=== PATIENT | male | born 1950 | race American Indian/Alaskan Native ===

== ENCOUNTER 2017-11-19 23:26 | Emergency (ER) | payer MEDICARE ==
[2017-11-19] MEDS ORDERED: ASPIRIN PO ONE (23:43)
[2017-11-20 00:05] LABS: Hematocrit 27.1 % (35.5-45.6); Hemoglobin 8.5 gm/dl (11.8-15.2); Mean Corpuscular HGB Conc 31 % (32-34); Platelet Count 225 K/mm3 (140-440); Red Blood Count 3.95 M/mm3 (3.65-5.03); Red Cell Distribution Width 19.7 % (13.2-15.2)
[2017-11-20 00:07] LABS: Mean Corpuscular Hemoglobin 22 pg (28-32); Mean Corpuscular Volume 69 fl (84-94)
[2017-11-20 00:20] LABS: BUN/Creatinine Ratio 21; Blood Urea Nitrogen 17 mg/dL (9-20); Calcium 8.6 mg/dL (8.4-10.2); Hemolysis Index 0
[2017-11-20 01:51] LABS: Anisocytosis 1+; Basophils % (Manual) 0 % (0.0-1.8); Hypochromasia 2+; Total Cells Counted 100
[2017-11-20 01:52] LABS: Large Platelets Few; Ovalocytes Few; Platelet Estimate Consistent w Auto
[2017-11-20] MEDS ORDERED: NACL 0.9% 1000 ML 1,000 ML ONE (03:14)
[2017-11-20] MEDS ORDERED: NACL 0.9% 500 ML 500 ML IV ONE (05:38)
[2017-11-20] MEDS ORDERED: NACL 0.9% 1000 ML 1,000 ML IV ONE (05:57)
--- NOTE | 2017-11-20 06:38 | XRay Report ---
FINAL REPORT EXAM: XR CHEST 1V AP HISTORY: chest pain TECHNIQUE: AP portable view(s) of the chest obtained. PRIORS: 11/10/2017, CT chest angiogram 11/10/2017 FINDINGS: No mediastinal shift. Cardiac silhouette is not enlarged. No pneumothorax or definite effusion. Large right lower lung mass and patchy right and left opacities are unchanged. No acute skeletal findings. IMPRESSION: No acute pulmonary finding identified. Known large right lung mass and multiple additional pleural and parenchymal nodules appear unchanged.
--- NOTE | 2017-11-20 07:06 | Emergency Department Report ---
ED Chest Pain HPI - General Chief Complaint: Chest Pain Stated Complaint: CP Time Seen by Provider: 11/20/17 06:05 Source: patient, EMS Mode of arrival: Stretcher Limitations: No Limitations - History of Present Illness Initial Comments: Patient is a 67-year-old male who is complaining of chest pain. Patient states that he was playing with his son last night and started having chest pain shortness of breath. Patient states his last approximately 30 minutes. Patient states whenever he was given last night did help his pain. Patient has a history of lung cancer hypertension. Patient has had SVT in the past. Patient came in with an elevated heart rate. Severity scale (0 -10): 5 Quality: tightness Consistency: constant - Related Data Home Medications Medication Instructions Recorded Confirmed Last Taken Diltiazem HCl [Diltiazem ER] 120 mg PO QDAY 11/10/17 11/10/17 Unknown Mirtazapine [Remeron] 15 mg PO HS 11/10/17 11/10/17 Unknown levETIRAcetam [Keppra] 500 mg PO Q12H 11/10/17 11/10/17 Unknown Allergies Allergy/AdvReac Type Severity Reaction Status Date / Time No Known Allergies Allergy Verified 11/10/17 03:59 Heart Score - HEART Score History: Slightly suspicious EKG: Normal Age: > 65 Risk factors: 1-2 risk factors Troponin: < normal limit HEART Score: 3 ED Review of Systems ROS: Stated complaint: CP Other details as noted in HPI Comment: All other systems reviewed and negative ED Past Medical Hx - Past Medical History Hx Hypertension: Yes Hx of Cancer: Yes (Lung) Hx Sickle Cell Disease: No Hx HIV: No Additional medical history: SVT - Surgical History Past Surgical History?: No Additional Surgical History: right collar bone - Social History Smoking Status: Never Smoker Substance Use Type: None - Medications Home Medications: Home Medications Medication Instructions Recorded Confirmed Last Taken Type Diltiazem HCl [Diltiazem ER] 120 mg PO QDAY 11/10/17 11/10/17 Unknown History Mirtazapine [Remeron] 15 mg PO HS 11/10/17 11/10/17 Unknown History levETIRAcetam [Keppra] 500 mg PO Q12H 11/10/17 11/10/17 Unknown History ED Physical Exam - General Limitations: No Limitations General appearance: alert, in no apparent distress - Head Head exam: Present: atraumatic, normocephalic - Eye Eye exam: Present: normal appearance - ENT ENT exam: Present: mucous membranes moist - Neck Neck exam: Present: normal inspection - Respiratory Respiratory exam: Present: normal lung sounds bilaterally. Absent: respiratory distress, wheezes, rales, rhonchi - Cardiovascular Cardiovascular Exam: Present: normal rhythm, tachycardia. Absent: systolic murmur, diastolic murmur, rubs, gallop - GI/Abdominal GI/Abdominal exam: Present: soft, normal bowel sounds - Rectal Rectal exam: Present: deferred - Extremities Exam Extremities exam: Present: normal inspection - Back Exam Back exam: Present: normal inspection - Neurological Exam Neurological exam: Present: alert, oriented X3 - Psychiatric Psychiatric exam: Present: normal affect, normal mood - Skin Skin exam: Present: warm, dry, intact, normal color. Absent: rash ED Course Vital Signs 11/19/17 11/19/17 11/19/17 23:41 23:45 23:47 Temperature Pulse Rate 95 H 95 H 95 H Respiratory 17 16 16 Rate Blood Pressure 122/68 114/73 114/73 O2 Sat by Pulse 99 98 Oximetry 11/19/17 11/20/17 11/20/17 23:52 00:00 00:15 Temperature 98.7 F Pulse Rate 90 89 Respiratory 16 16 15 Rate Blood Pressure 107/66 103/66 O2 Sat by Pulse 98 Oximetry 11/20/17 11/20/17 11/20/17 00:30 00:45 01:00 Temperature Pulse Rate 85 87 93 H Respiratory 16 16 16 Rate Blood Pressure 108/65 106/68 125/83 O2 Sat by Pulse 100 Oximetry 11/20/17 11/20/17 11/20/17 02:57 03:00 04:01 Temperature Pulse Rate 133 H 129 H Respiratory 14 11 L Rate Blood Pressure 108/65 109/78 105/75 O2 Sat by Pulse 99 96 100 Oximetry 11/20/17 11/20/17 05:01 05:31 Temperature Pulse Rate 103 H 89 Respiratory 22 15 Rate Blood Pressure 106/71 106/71 O2 Sat by Pulse 98 100 Oximetry ED Medical Decision Making - Lab Data Result diagrams: 11/19/17 23:51 11/19/17 23:51 Lab Results 11/19/17 11/19/17 11/20/17 Range/Units 23:51 23:51 03:05 WBC 2.7 L (4.5-11.0) K/mm3 RBC 3.95 (3.65-5.03) M/mm3 Hgb 8.5 L (11.8-15.2) gm/dl Hct 27.1 L (35.5-45.6) % MCV 69 L (84-94) fl MCH 22 L (28-32) pg MCHC 31 L (32-34) % RDW 19.7 H (13.2-15.2) % Plt Count 225 (140-440) K/mm3 [place] % (Auto) Managing Consultant Add Manual Diff Complete Total Counted 100 Seg Neuts % (Manual) 39.0 L (40.0-70.0) % Band Neutrophils % 1.0 % Lymphocytes % (Manual) 43.0 H (13.4-35.0) % Reactive Lymphs % (Man) 0 % Monocytes % (Manual) 14.0 H (0.0-7.3) % Eosinophils % (Manual) 3.0 (0.0-4.3) % Basophils % (Manual) 0 (0.0-1.8) % Metamyelocytes % 0 % Myelocytes % 0 % Promyelocytes % 0 % Blast Cells % 0 % Nucleated RBC % Not Reportable Seg Neutrophils # Man 1.1 L (1.8-7.7) K/mm3 Band Neutrophils # 0.0 K/mm3 Lymphocytes # (Manual) 1.2 (1.2-5.4) K/mm3 Abs React Lymphs (Man) 0.0 K/mm3 Monocytes # (Manual) 0.4 (0.0-0.8) K/mm3 Eosinophils # (Manual) 0.1 (0.0-0.4) K/mm3 Basophils # (Manual) 0.0 (0.0-0.1) K/mm3 Metamyelocytes # 0.0 K/mm3 Myelocytes # 0.0 K/mm3 Promyelocytes # 0.0 K/mm3 Blast Cells # 0.0 K/mm3 WBC Morphology Not Reportable Hypersegmented Neuts Not Reportable Hyposegmented Neuts Not Reportable Hypogranular Neuts Not Reportable Smudge Cells Not Reportable Toxic Granulation Not Reportable Toxic Vacuolation Not Reportable Dohle Bodies Not Reportable Pelger-Huet Anomaly Not Reportable Fred Rods Not Reportable Platelet Estimate Consistent w auto Clumped Platelets Not Reportable Plt Clumps, EDTA Not Reportable Large Platelets Few Giant Platelets Not Reportable Platelet Satelliting Not Reportable Plt Morphology Comment Not Reportable RBC Morphology Not Reportable Dimorphic RBCs Not Reportable Polychromasia Not Reportable Hypochromasia 2+ Poikilocytosis Not Reportable Anisocytosis 1+ Microcytosis 1+ Macrocytosis Not Reportable Spherocytes Not Reportable Pappenheimer Bodies Not Reportable Sickle Cells Not Reportable Target Cells Not Reportable Tear Drop Cells Not Reportable Ovalocytes Few Helmet Cells Not Reportable Adan-[place] Bodies Not Reportable [place] Rings Not Reportable Bud Cells Not Reportable Bite Cells Not Reportable Crenated Cell Not Reportable Elliptocytes Few Acanthocytes (Spur) Not Reportable Rouleaux Not Reportable Hemoglobin C Crystals Not Reportable Schistocytes Not Reportable Malaria parasites Not Reportable Alejandro Bodies Not Reportable Hem Pathologist Commnt No Sodium 142 (137-145) mmol/L Potassium 3.9 (3.6-5.0) mmol/L Chloride 101.9 (98-107) mmol/L Carbon Dioxide 28 (22-30) mmol/L Anion Gap 16 mmol/L BUN 17 (9-20) mg/dL Creatinine 0.8 (0.8-1.5) mg/dL Estimated GFR > 60 ml/min BUN/Creatinine Ratio 21 % Glucose 107 H (75-100) mg/dL Calcium 8.6 (8.4-10.2) mg/dL Troponin T < 0.010 < 0.010 (0.00-0.029) ng/mL 11/20/17 Range/Units 05:54 WBC (4.5-11.0) K/mm3 RBC (3.65-5.03) M/mm3 Hgb (11.8-15.2) gm/dl Hct (35.5-45.6) % MCV (84-94) fl MCH (28-32) pg MCHC (32-34) % RDW (13.2-15.2) % Plt Count (140-440) K/mm3 [place] % (Auto) Add Manual Diff Total Counted Seg Neuts % (Manual) (40.0-70.0) % Band Neutrophils % % Lymphocytes % (Manual) (13.4-35.0) % Reactive Lymphs % (Man) % Monocytes % (Manual) (0.0-7.3) % Eosinophils % (Manual) (0.0-4.3) % Basophils % (Manual) (0.0-1.8) % Metamyelocytes % % Myelocytes % % Promyelocytes % % Blast Cells % % Nucleated RBC % Seg Neutrophils # Man (1.8-7.7) K/mm3 Band Neutrophils # K/mm3 Lymphocytes # (Manual) (1.2-5.4) K/mm3 Abs React Lymphs (Man) K/mm3 Monocytes # (Manual) (0.0-0.8) K/mm3 Eosinophils # (Manual) (0.0-0.4) K/mm3 Basophils # (Manual) (0.0-0.1) K/mm3 Metamyelocytes # K/mm3 Myelocytes # K/mm3 Promyelocytes # K/mm3 Blast Cells # K/mm3 WBC Morphology Hypersegmented Neuts Hyposegmented Neuts Hypogranular Neuts Smudge Cells Toxic Granulation Toxic Vacuolation Dohle Bodies Pelger-Huet Anomaly Fred Rods Platelet Estimate Clumped Platelets Plt Clumps, EDTA Large Platelets Giant Platelets Platelet Satelliting Plt Morphology Comment RBC Morphology Dimorphic RBCs Polychromasia Hypochromasia Poikilocytosis Anisocytosis Microcytosis Macrocytosis Spherocytes Pappenheimer Bodies Sickle Cells Target Cells Tear Drop Cells Ovalocytes Helmet Cells Adan-[place] Bodies [place] Rings Ahsan Cells Bite Cells Crenated Cell Elliptocytes Acanthocytes (Spur) Rouleaux Hemoglobin C Crystals Schistocytes Malaria parasites Alejandro Bodies Hem Pathologist Commnt Sodium (137-145) mmol/L Potassium (3.6-5.0) mmol/L Chloride (98-107) mmol/L Carbon Dioxide (22-30) mmol/L Anion Gap mmol/L BUN (9-20) mg/dL Creatinine (0.8-1.5) mg/dL Estimated GFR ml/min BUN/Creatinine Ratio % Glucose (75-100) mg/dL Calcium (8.4-10.2) mg/dL Troponin T < 0.010 (0.00-0.029) ng/mL - EKG Data -: EKG Interpreted by Me - EKG Data 11/20/17 07:03 EKG on arrival at 2357 shows a sinus rhythm rate of 92 moniliasis normal intervals no ST segment elevations or depressions EKG at 322 shows tachycardia with a rate of 131 there are no P waves regular rate intervals are within normal limits.The elevations as interpreted as SVT. Repeat - Radiology Data Radiology results: report reviewed This x-ray is within normal limits. There is a previous lung mass that is old and seen on previous sounds. Otherwise there is no acute process - Medical Decision Making Patient is a 67-year-old -[place] male who has past medical history SVT who has chest pain shortness of breath prior to arrival. The patient states this lasted about 30 minutes and resolved. The patient arrived his EKG was within normal limits. And while monitoring and gathering of the patient's laboratory studies to rule out [place] patient did have a run of tachycardia. The tachycardia did not have P waves consistent with an SVT. Patient was given adenosine 2 doses and is feeling much improved. Patient does have take diltiazem for rate control at home and will continue this medication. Patient is stable at 0700 and states he would like to go home. Patient cardiology follow-up. Critical Care Time: Yes Critical care time in (mins) excluding proc time.: 30 Critical care attestation.: If time is entered above; I have spent that time in minutes in the direct care of this critically ill patient, excluding procedure time. ED Disposition Clinical Impression: SVT (supraventricular tachycardia), Chest pain Disposition: DC-01 TO HOME OR SELFCARE Is pt being admited?: No Does the pt Need Aspirin: No Condition: Stable Instructions: Chest Pain (ED), Supraventricular Tachycardia (ED) Referrals: HERB KILPATRICK MD [Primary Care Provider] - 3-5 Days LAUREANO MARTINEZ MD [Staff Physician] - 3-5 Days
[2017-11-20 07:57] VITALS: BP 124/77
== END 2017-11-20 07:10 | disposition home or self-care (01) ==
LOC: ED 23:26
DX: I47.1 Supraventricular tachycardia (principal); I10 Essential (primary) hypertension
CPT/HCPCS: 36415; 71045; 80048; 84484; 85007; 85025; 93005; 93010; 99291; J7030; 96360; J0153

== ENCOUNTER 2017-11-23 00:09 | Emergency (ER) | payer MEDICARE ==
[2017-11-23] MEDS ORDERED: ZOFRAN IV ONE (01:31)
[2017-11-23] MEDS ORDERED: SUBLIMAZE IV ONE (01:31)
--- NOTE | 2017-11-23 01:34 | Emergency Department Report ---
ED Chest Pain HPI - General Chief Complaint: Pain General Stated Complaint: CHEST PAIN Time Seen by Provider: 11/23/17 01:18 Source: patient, EMS Mode of arrival: Stretcher Limitations: No Limitations - History of Present Illness Initial Comments: Patient is 67 years old male history of lung cancer with metastasis to the brain. Patient recently started on chemotherapy and radiation. Patient presented to the ER complaining of right sided chest pain that he started 2 days ago. Patient stated that his pain is similar to what he used to have. She denied any fever, shortness of breaths, nausea or vomiting. He stated that he just want something to help with his pain. MD Complaint: chest pain -: days(s) Pain Location: right chest Severity scale (0 -10): 7 Quality: sharp Consistency: intermittent - Related Data Home Medications Medication Instructions Recorded Confirmed Last Taken Diltiazem HCl [Diltiazem ER] 120 mg PO QDAY 11/10/17 11/10/17 Unknown Mirtazapine [Remeron] 15 mg PO HS 11/10/17 11/10/17 Unknown levETIRAcetam [Keppra] 500 mg PO Q12H 11/10/17 11/10/17 Unknown Allergies Allergy/AdvReac Type Severity Reaction Status Date / Time No Known Allergies Allergy Verified 11/10/17 03:59 Heart Score - HEART Score History: Slightly suspicious EKG: Non-specific Age: > 65 Risk factors: 1-2 risk factors Troponin: < normal limit HEART Score: 4 - Critical Actions Critical Actions: 4-6 pts:12-16.6% risk of adverse cardiac event. Should be admitted ED Review of Systems ROS: Stated complaint: CHEST PAIN Other details as noted in HPI Comment: All other systems reviewed and negative Constitutional: denies: chills, fever Cardiovascular: chest pain. denies: palpitations Gastrointestinal: denies: abdominal pain, nausea, vomiting, diarrhea, constipation, hematemesis, melena, hematochezia Genitourinary: denies: urgency, frequency, hematuria Musculoskeletal: denies: back pain Neurological: denies: headache, weakness, numbness, paresthesias, confusion, abnormal gait, vertigo ED Past Medical Hx - Past Medical History Previous Medical History?: Yes Hx Hypertension: Yes Hx of Cancer: Yes (lung cancer) Hx Sickle Cell Disease: No Hx HIV: No Additional medical history: SVT - Surgical History Additional Surgical History: right collar bone - Social History Smoking Status: Former Smoker - Medications Home Medications: Home Medications Medication Instructions Recorded Confirmed Last Taken Type Diltiazem HCl [Diltiazem ER] 120 mg PO QDAY 11/10/17 11/10/17 Unknown History Mirtazapine [Remeron] 15 mg PO HS 11/10/17 11/10/17 Unknown History levETIRAcetam [Keppra] 500 mg PO Q12H 11/10/17 11/10/17 Unknown History ED Physical Exam - General Limitations: No Limitations General appearance: alert, in no apparent distress - Head Head exam: Present: atraumatic, normocephalic, normal inspection - Eye Eye exam: Present: normal appearance, PERRL - ENT ENT exam: Present: normal exam, normal orophraynx, mucous membranes moist - Neck Neck exam: Present: normal inspection, full ROM. Absent: tenderness, meningismus, lymphadenopathy, thyromegaly - Respiratory Respiratory exam: Present: normal lung sounds bilaterally. Absent: respiratory distress, wheezes, rales, rhonchi, stridor, chest wall tenderness, accessory muscle use, decreased breath sounds, prolonged expiratory - Cardiovascular Cardiovascular Exam: Present: regular rate, normal rhythm, normal heart sounds - GI/Abdominal GI/Abdominal exam: Present: soft, normal bowel sounds. Absent: distended, tenderness, guarding, rebound, rigid, organomegaly, mass, bruit, pulsatile mass - Extremities Exam Extremities exam: Present: normal inspection, full ROM, normal capillary refill - Back Exam Back exam: Present: normal inspection, full ROM - Neurological Exam Neurological exam: Present: alert, oriented X3, CN II-XII intact, normal gait - Skin Skin exam: Present: warm, intact, normal color ED Course Vital Signs 11/23/17 11/23/17 11/23/17 00:21 01:00 02:59 Temperature 98.6 F Pulse Rate 97 H Respiratory 20 20 20 Rate Blood Pressure 137/86 O2 Sat by Pulse 98 98 Oximetry ED Medical Decision Making - Lab Data Result diagrams: 11/23/17 01:43 11/23/17 01:43 - Radiology Data Radiology results: report reviewed Referring Physician: ALEX EDWARDS Patient Name: PHI KUMAR Date of : 1950 Sex: Male Report Date: 2017-11-23 Report Status: Finalized Findings [facility] [address] [place] [address] XRay Report Signed Patient: PHI KUMAR MR#: [id number] : 1950 Acct:[id number] Age/Sex: 67 / M ADM Date: 11/23/17 Loc: ED Attending Dr: Ordering Physician: ALEX EDWARDS Date of Service: 11/23/17 Procedure(s): XR chest 1V ap Accession Number(s): [id number] cc: ALXE EDWARDS Fluoro Time In Minutes: FINAL REPORT EXAM: XR CHEST 1V AP HISTORY: chest pain COMPARISON: November 20, 2017. FINDINGS: Frontal view(s) of the chest obtained. Heart borderline enlarged. Stable patchy airspace consolidation medial right lung base with small effusion. Stable nodular opacities left lung base.. Additional smaller nodular densities are scattered throughout the remaining lungs. No pneumothorax. IMPRESSION: Stable consolidation medial right lung base an nodular densities scattered throughout the lungs. Transcribed By: LMA Dictated By: BETI CORNELL MD Electronically Authenticated By: BETI CORNELL MD Signed Date/Time: 11/23/17199 DD/ 9 TD/TT: 11/23/17199 - Medical Decision Making Patient is 67 years old male with history of lung cancer metastasis to the brain. Patient recently started on chemotherapy. Patient presented with chronic right chest pain. Patient is still saying that this is similar to what he used to have. Patient stated that he is feeling much better now after the fentanyl. Chest x-ray reviewed and it did not show anything acute although the finding are stable. Patient does not have any shortness of breath to indicate pulmonary embolism. I advised patient to follow up with his primary care physician and I will discharge him some pain medication. Critical care attestation.: If time is entered above; I have spent that time in minutes in the direct care of this critically ill patient, excluding procedure time. ED Disposition Clinical Impression: Right-sided chest pain Disposition: - TO HOME OR SELFCARE Is pt being admited?: No Condition: Stable Instructions: Chest Pain (ED) Referrals: PRIMARY CARE, [Primary Care Provider] - 3-5 Days
[2017-11-23 01:52] LABS: Basophils % (Auto) 0.3 % (0.0-1.8); Eosinophils # (Auto) 0.1 K/mm3 (0.0-0.4); Eosinophils % (Auto) 1.9 % (0.0-4.3); Hematocrit 25.6 % (35.5-45.6); Hemoglobin 8.3 gm/dl (11.8-15.2); Lymphocytes % (Auto) 18.4 % (13.4-35.0); Mean Corpuscular HGB Conc 33 % (32-34); Mean Corpuscular Hemoglobin 22 pg (28-32); Mean Corpuscular Volume 67 fl (84-94); Monocytes # (Auto) 0.7 K/mm3 (0.0-0.8); Monocytes % (Auto) 12.9 % (0.0-7.3); Platelet Count 192 K/mm3 (140-440); Red Blood Count 3.84 M/mm3 (3.65-5.03); Red Cell Distribution Width 20.1 % (13.2-15.2)
--- NOTE | 2017-11-23 02:04 | XRay Report ---
FINAL REPORT EXAM: XR CHEST 1V AP HISTORY: chest pain COMPARISON: November 20, 2017. FINDINGS: Frontal view(s) of the chest obtained. Heart borderline enlarged. Stable patchy airspace consolidation medial right lung base with small effusion. Stable nodular opacities left lung base.. Additional smaller nodular densities are scattered throughout the remaining lungs. No pneumothorax. IMPRESSION: Stable consolidation medial right lung base an nodular densities scattered throughout the lungs.
[2017-11-23 02:08] LABS: Alanine Aminotransferase 14 units/L (7-56); Albumin 2.8 g/dL (3.9-5); BUN/Creatinine Ratio 17; Blood Urea Nitrogen 17 mg/dL (9-20); Calcium 8.8 mg/dL (8.4-10.2); Hemolysis Index 1
[2017-11-23 06:34] VITALS: BP 121/70
== END 2017-11-23 06:40 | disposition home or self-care (01) ==
LOC: ED 00:09
DX: R07.89 Other chest pain (principal); I10 Essential (primary) hypertension; Z87.891 Personal history of nicotine dependence
CPT/HCPCS: 36415; 71045; 80053; 85025; 96374; 96375; 99284; J2405; J3010

== ENCOUNTER 2017-11-24 00:42 | Emergency (ER) | payer MEDICARE ==
[2017-11-24] MEDS ORDERED: ASPIRIN PO ONE (01:37)
[2017-11-24 02:15] LABS: Basophils % (Auto) 0.5 % (0.0-1.8); Eosinophils # (Auto) 0.2 K/mm3 (0.0-0.4); Eosinophils % (Auto) 2.6 % (0.0-4.3); Hematocrit 30.7 % (35.5-45.6); Hemoglobin 9.6 gm/dl (11.8-15.2); Lymphocytes # (Auto) 1.1 K/mm3 (1.2-5.4); Lymphocytes % (Auto) 17.6 % (13.4-35.0); Mean Corpuscular HGB Conc 31 % (32-34); Monocytes # (Auto) 0.7 K/mm3 (0.0-0.8); Monocytes % (Auto) 11.6 % (0.0-7.3); Platelet Count 198 K/mm3 (140-440); Red Blood Count 4.49 M/mm3 (3.65-5.03)
[2017-11-24 02:24] LABS: Mean Corpuscular Hemoglobin 21 pg (28-32); Mean Corpuscular Volume 68 fl (84-94); Red Cell Distribution Width 20.3 % (13.2-15.2)
[2017-11-24 02:34] LABS: BUN/Creatinine Ratio 20; Blood Urea Nitrogen 16 mg/dL (9-20); Calcium 9.3 mg/dL (8.4-10.2); Hemolysis Index 3
[2017-11-24 06:44] VITALS: BP 132/77
--- NOTE | 2017-11-24 06:51 | Emergency Department Report ---
ED General Adult HPI - General Chief complaint: Chest Pain Stated complaint: CP Time Seen by Provider: 11/24/17 06:41 Source: patient, EMS Mode of arrival: Ambulatory Limitations: No Limitations - History of Present Illness Initial comments: Mr. Pino is 67 years old male familiar to me and to the ER staff. Patient is being seen in this ER regularly for the last few months for the same complaint which include right chest pain. Patient has history of lung cancer with metastasis. He is currently on chemotherapy. Patient presented with right- sided chest pain similar to what he used to have. Patient stated that his pain hit him this morning and while he was waiting outside he took his Pain medicine and the pain completely resolved. Patient is pain-free now. He denied any other complaint. Severity scale (0 -10): 10 - Related Data Home Medications Medication Instructions Recorded Confirmed Last Taken Diltiazem HCl [Diltiazem ER] 120 mg PO QDAY 11/10/17 11/10/17 Unknown Mirtazapine [Remeron] 15 mg PO HS 11/10/17 11/10/17 Unknown levETIRAcetam [Keppra] 500 mg PO Q12H 11/10/17 11/10/17 Unknown Previous Rx's Medication Instructions Recorded Last Taken Type Ondansetron [Zofran Odt] 4 mg PO Q8HR PRN #14 tab.rapdis 11/23/17 Unknown Rx oxyCODONE /ACETAMINOPHEN [Percocet 1 tab PO Q6HR PRN #14 tablet 11/23/17 Unknown Rx 5/325] Allergies Allergy/AdvReac Type Severity Reaction Status Date / Time No Known Allergies Allergy Verified 11/10/17 03:59 ED Review of Systems ROS: Stated complaint: CP Other details as noted in HPI Comment: All other systems reviewed and negative Constitutional: denies: chills, fever Respiratory: denies: cough Cardiovascular: chest pain (resolved). denies: palpitations, dyspnea on exertion, orthopnea Gastrointestinal: denies: abdominal pain, nausea, vomiting, diarrhea, constipation, hematemesis, melena, hematochezia Musculoskeletal: denies: back pain ED Past Medical Hx - Past Medical History Previous Medical History?: Yes Hx Hypertension: Yes Hx of Cancer: Yes (Lung cancer) Hx Sickle Cell Disease: No Hx HIV: No Additional medical history: SVT - Surgical History Past Surgical History?: Yes Additional Surgical History: right collar bone - Social History Smoking Status: Former Smoker - Medications Home Medications: Home Medications Medication Instructions Recorded Confirmed Last Taken Type Diltiazem HCl [Diltiazem ER] 120 mg PO QDAY 11/10/17 11/10/17 Unknown History Mirtazapine [Remeron] 15 mg PO HS 11/10/17 11/10/17 Unknown History levETIRAcetam [Keppra] 500 mg PO Q12H 11/10/17 11/10/17 Unknown History Ondansetron [Zofran Odt] 4 mg PO Q8HR PRN #14 tab.rapdis 11/23/17 Unknown Rx oxyCODONE /ACETAMINOPHEN [Percocet 1 tab PO Q6HR PRN #14 tablet 11/23/17 Unknown Rx 5/325] ED Physical Exam - General Limitations: No Limitations General appearance: alert, in no apparent distress - Head Head exam: Present: atraumatic, normocephalic, normal inspection - Eye Eye exam: Present: normal appearance - ENT ENT exam: Present: normal exam, normal orophraynx, mucous membranes moist - Neck Neck exam: Present: normal inspection, full ROM. Absent: tenderness, meningismus, lymphadenopathy, thyromegaly - Respiratory Respiratory exam: Present: decreased breath sounds (right lower lobe). Absent: respiratory distress, wheezes, rales, rhonchi, stridor, chest wall tenderness, accessory muscle use, prolonged expiratory - Cardiovascular Cardiovascular Exam: Present: regular rate, normal rhythm, normal heart sounds - GI/Abdominal GI/Abdominal exam: Present: soft, normal bowel sounds. Absent: distended, tenderness, guarding, rebound, rigid, organomegaly, mass, bruit, pulsatile mass - Extremities Exam Extremities exam: Present: normal inspection, full ROM, normal capillary refill - Back Exam Back exam: Present: normal inspection, full ROM. Absent: tenderness, CVA tenderness (R), CVA tenderness (L) - Neurological Exam Neurological exam: Present: alert, oriented X3, CN II-XII intact, normal gait - Skin Skin exam: Present: warm, intact, normal color ED Course Vital Signs 11/24/17 11/24/17 11/24/17 01:02 01:16 06:00 Temperature 97.4 F L 97.4 F L 97.7 F Pulse Rate 97 H 97 H 90 Respiratory 18 18 20 Rate Blood Pressure 123/80 123/80 Blood Pressure 132/77 [Right] O2 Sat by Pulse 96 96 97 Oximetry 11/24/17 06:44 Temperature Pulse Rate Respiratory 20 Rate Blood Pressure Blood Pressure [Right] O2 Sat by Pulse 97 Oximetry ED Medical Decision Making - Lab Data Result diagrams: 11/24/17 01:51 11/24/17 01:51 - EKG Data -: EKG Interpreted by Me EKG shows normal: sinus rhythm Rate: normal - EKG Data Interpretation: no acute changes - Medical Decision Making Patient stated that his pain completely resolved. He wanted to leave because he wanted to catch a bus. He stated that he is always his primary care physician on Friday. I discussed with him the need for a follow-up was a pain medicine clinic to help with his chronic chest pain, agreed and he stated that he will talk to his doctor about that. I advised patient to return to the ER if his symptoms are not improving. Critical care attestation.: If time is entered above; I have spent that time in minutes in the direct care of this critically ill patient, excluding procedure time. ED Disposition Clinical Impression: Chest pain, Lung cancer Disposition: DC-01 TO HOME OR SELFCARE Is pt being admited?: No Condition: Stable Instructions: Chest Pain (ED), Lung Cancer (ED) Referrals: PRIMARY CARE, [Primary Care Provider] - 3-5 Days
== END 2017-11-24 07:08 | disposition home or self-care (01) ==
LOC: ED 00:42
DX: R07.9 Chest pain, unspecified (principal); C34.90 Malignant neoplasm of unspecified part of unspecified bronchus or lung
CPT/HCPCS: 36415; 80048; 84484; 85025; 93005; 93010

== ENCOUNTER 2017-11-24 20:16 | Emergency (ER) | payer MEDICARE ==
[2017-11-24 21:09] VITALS: BP 141/97
== END 2017-11-24 22:30 | disposition left against medical advice (07) ==
LOC: ED 20:16
DX: R07.81 Pleurodynia (principal); Z53.21 Procedure and treatment not carried out due to patient leaving prior to being seen by health care provider

== ENCOUNTER 2017-11-29 18:03 | Emergency (ER) | payer MEDICARE ==
[2017-11-29] MEDS ORDERED: ASPIRIN PO ONE (18:17)
--- NOTE | 2017-11-29 18:21 | Emergency Department Report ---
ED Chest Pain HPI - General Chief Complaint: Chest Pain Stated Complaint: ALTERED LEVEL OF CONSCIOUSNESS Time Seen by Provider: 11/29/17 18:19 Source: patient, EMS Mode of arrival: Stretcher Limitations: No Limitations - History of Present Illness Initial Comments: Patient was found in SVT by EMS and was cardioverted by EMS prior to arrival in the emergency room. MD Complaint: chest pain -: Sudden Onset: during rest Pain Location: left chest Pain Radiation: none Severity scale (0 -10): 6 Consistency: now resolved Improves With: other (cardioversion by EMS) Worsens With: nothing re: denies: nausea Treatments Prior to Arrival: other (cardiovascular) - Related Data On Oral Contraceptives: No Home Medications Medication Instructions Recorded Confirmed Last Taken Diltiazem HCl [Diltiazem ER] 120 mg PO QDAY 11/10/17 11/10/17 Unknown Mirtazapine [Remeron] 15 mg PO HS 11/10/17 11/10/17 Unknown levETIRAcetam [Keppra] 500 mg PO Q12H 11/10/17 11/10/17 Unknown Previous Rx's Medication Instructions Recorded Last Taken Type Ondansetron [Zofran Odt] 4 mg PO Q8HR PRN #14 tab.rapdis 11/23/17 Unknown Rx oxyCODONE /ACETAMINOPHEN [Percocet 1 tab PO Q6HR PRN #14 tablet 11/23/17 Unknown Rx 5/325] Allergies Allergy/AdvReac Type Severity Reaction Status Date / Time No Known Allergies Allergy Verified 11/10/17 03:59 Heart Score - HEART Score History: Slightly suspicious EKG: Non-specific Age: > 65 Risk factors: 1-2 risk factors Troponin: 1-3x normal limit HEART Score: 5 - Critical Actions Critical Actions: 4-6 pts:12-16.6% risk of adverse cardiac event. Should be admitted ED Review of Systems ROS: Stated complaint: ALTERED LEVEL OF CONSCIOUSNESS Other details as noted in HPI Comment: All other systems reviewed and negative Constitutional: denies: chills, fever Eyes: denies: vision change ENT: denies: ear pain Respiratory: shortness of breath. denies: cough Cardiovascular: chest pain, palpitations. denies: edema Endocrine: no symptoms reported Gastrointestinal: denies: abdominal pain, nausea, vomiting, diarrhea Genitourinary: denies: dysuria, frequency Musculoskeletal: denies: back pain, joint swelling Skin: denies: rash, change in color Neurological: denies: headache, numbness Psychiatric: denies: anxiety Hematological/Lymphatic: denies: easy bleeding, easy bruising ED Past Medical Hx - Past Medical History Hx Hypertension: Yes Hx Sickle Cell Disease: No Hx HIV: No Additional medical history: SVT, Lung CA 08/2017 - Surgical History Additional Surgical History: right collar bone, Tumor removr from head - Social History Smoking Status: Never Smoker - Medications Home Medications: Home Medications Medication Instructions Recorded Confirmed Last Taken Type Diltiazem HCl [Diltiazem ER] 120 mg PO QDAY 11/10/17 11/10/17 Unknown History Mirtazapine [Remeron] 15 mg PO HS 11/10/17 11/10/17 Unknown History levETIRAcetam [Keppra] 500 mg PO Q12H 11/10/17 11/10/17 Unknown History Ondansetron [Zofran Odt] 4 mg PO Q8HR PRN #14 tab.rapdis 11/23/17 Unknown Rx oxyCODONE /ACETAMINOPHEN [Percocet 1 tab PO Q6HR PRN #14 tablet 11/23/17 Unknown Rx 5/325] ED Physical Exam - General Limitations: No Limitations General appearance: alert, in no apparent distress - Head Head exam: Present: other (surgical scar on the scalp) - Eye Eye exam: Present: normal appearance, PERRL Pupils: Present: normal accommodation - ENT ENT exam: Present: normal exam, mucous membranes moist - Neck Neck exam: Present: normal inspection, full ROM - Respiratory Respiratory exam: Present: normal lung sounds bilaterally - Cardiovascular Cardiovascular Exam: Present: tachycardia - GI/Abdominal GI/Abdominal exam: Present: soft, normal bowel sounds. Absent: tenderness, guarding, rebound - Extremities Exam Extremities exam: Present: normal inspection, full ROM, normal capillary refill - Back Exam Back exam: Present: normal inspection - Neurological Exam Neurological exam: Present: alert, oriented X3, CN II-XII intact - Psychiatric Psychiatric exam: Present: flat affect - Skin Skin exam: Present: warm, dry, intact, normal color. Absent: rash ED Course Vital Signs 11/29/17 11/29/17 11/29/17 18:18 18:30 18:46 Pulse Rate 177 H 107 H Respiratory 16 11 L 19 Rate Blood Pressure 83/62 O2 Sat by Pulse 97 Oximetry 11/29/17 19:34 Pulse Rate 106 H Respiratory 16 Rate Blood Pressure O2 Sat by Pulse Oximetry - Reevaluation(s) Reevaluation #1: 11/29/17 19:43 I consulted the buddhist monk exchange consultant Dr. Yusuf Welch. He recommended giving the patient amiodarone 150 mg IV, and then continuing amiodarone drip. He also recommend admitting patient for further evaluation and management. Reevaluation #2: 11/29/17 21:12 Patient is accepted at [facility] by Dr. Sorto and the Neurosurgeon Dr. Garcia for further evaluation and management. NOAH score - Noah Score Age > 65: (1) Yes Aspirin use within the Past 7 Days: (0) No 3 or more CAD Risk Factors: (1) Yes 2 or more Angina events in past 24 hrs: (1) Yes Known CAD with more than 50% Stenosis: (0) No Elevated Cardiac Markers: (0) No ST Deviation Greater than 0.5mm: (0) No NOAH Score: 3 ED Medical Decision Making - Lab Data Result diagrams: 11/29/17 18:24 11/29/17 18:24 - EKG Data -: EKG Interpreted by Me Rate: tachycardia (SVT, rate 175) - EKG Data Interpretation: nonspecific ST-T wave estevan, other (No STEMI) - Radiology Data Radiology results: report reviewed, image reviewed I was called by then the radiologist Dr Tiwari. He told me that after looking and the patients head CT scan, patient has an acute small hemorrhoid measuring about 9 mm in the right parietal Lobe. CTA chest shows no pulmonary embolism. However, there are pulmonary masses and mediastinal adenopathy's according to Dr. Tiwari. - Medical Decision Making Chest Pain. SVT. Cerebral Hemorrage. Critical Care Time: Yes Critical care time in (mins) excluding proc time.: 60 Critical care attestation.: If time is entered above; I have spent that time in minutes in the direct care of this critically ill patient, excluding procedure time. ED Disposition Clinical Impression: SVT (supraventricular tachycardia), Elevated d-dimer, Cerebral hemorrhage, acute Chest pain Qualifiers: Chest pain type: unspecified Qualified Code(s): R07.9 - Chest pain, unspecified Disposition: DC/TX-02 SHRT-TRM GEN HOSP IP Is pt being admited?: Yes Does the pt Need Aspirin: Yes Condition: Stable Instructions: Chest Pain (ED) Referrals: PRIMARY CARE, [Primary Care Provider] - 3-5 Days
[2017-11-29] MEDS ORDERED: NACL 0.9% 1000 ML 1,000 ML ONE (18:31)
[2017-11-29] MEDS ORDERED: NACL 0.9% 1000 ML 1,000 ML IV ONE (18:33)
[2017-11-29 18:55] LABS: Basophils # (Auto) 0.1 K/mm3 (0.0-0.1); Basophils % (Auto) 0.9 % (0.0-1.8); Hematocrit 30.8 % (35.5-45.6); Hemoglobin 9.8 gm/dl (11.8-15.2); Lymphocytes # (Auto) 0.7 K/mm3 (1.2-5.4); Lymphocytes % (Auto) 11.5 % (13.4-35.0); Mean Corpuscular HGB Conc 32 % (32-34); Monocytes # (Auto) 0.2 K/mm3 (0.0-0.8); Monocytes % (Auto) 3.2 % (0.0-7.3); Platelet Count 162 K/mm3 (140-440); Red Blood Count 4.55 M/mm3 (3.65-5.03); Red Cell Distribution Width 19.7 % (13.2-15.2)
[2017-11-29 19:04] LABS: INR 0.89 (0.87-1.13)
[2017-11-29 19:10] LABS: BUN/Creatinine Ratio 20; Blood Urea Nitrogen 18 mg/dL (9-20); Calcium 8.9 mg/dL (8.4-10.2); Hemolysis Index 11
[2017-11-29 19:11] LABS: Alanine Aminotransferase 18 units/L (7-56); Albumin 2.8 g/dL (3.9-5)
[2017-11-29 19:17] LABS: Bilirubin,Direct < 0.2 mg/dL (0-0.2)
[2017-11-29 19:20] LABS: Mean Corpuscular Volume 68 fl (84-94)
[2017-11-29 19:21] LABS: Mean Corpuscular Hemoglobin 22 pg (28-32)
[2017-11-29 19:29] LABS: Bilirubin,Urine NEG (Negative); Blood,Urine NEG (Negative); Color,Urine Straw (Yellow); Mucus,Urine FEW /HPF; Protein,Urine <15 mg/dL mg/dL (Negative); Urobilinogen,Urine < 2.0 mg/dL (<2.0); WBC,Urine < 1.0 /HPF (0.0-6.0)
[2017-11-29 19:40] LABS: Amphetamine Screen,Urine PRESUMPTIVE NEGATIVE; Cannabinoid Screen,Urine PRESUMPTIVE NEGATIVE; Cocaine Screen,Urine PRESUMPTIVE NEGATIVE; Methadone Screen,Urine PRESUMPTIVE NEGATIVE; Opiate Screen,Urine PRESUMPTIVE NEGATIVE
[2017-11-29] MEDS ORDERED: BABY ASPIRIN PO ONE (19:48)
[2017-11-29] MEDS ORDERED: CORDARONE 150 MG in D5W 100 ML IV ONE (20:00)
[2017-11-29 20:14] LABS: Benzodiazepines Screen,Urine PRESUMPTIVE POSITIVE
--- NOTE | 2017-11-29 20:46 | Cat Scan Report ---
FINAL REPORT PROCEDURE: CT HEAD/BRAIN WO CON TECHNIQUE: Computerized tomography of the head was performed without contrast material. HISTORY: Headache COMPARISON: 11/10/2017 FINDINGS: Skull and scalp: There is evidence of right frontal craniotomy. Paranasal sinuses: Normal. Ventricles and subarachnoid spaces: Normal. Cerebrum: An irregular hyperdense focus measuring 9 x 8 millimeters is noted in the right high parietal region associated with moderate degree hypodensity of surrounding brain parenchyma. An irregular hypodense lesion is noted in the right frontal lobe which is more pronounced on the current study. Cerebellum and brainstem: An ill-defined hypodense lesion involving right cerebellar hemisphere is again noted without interval change.. Vasculature: Normal. Comments: None. IMPRESSION: A small hyperdense focus in the right parietal lobe is consistent with acute intracranial hemorrhage. This is associated with surrounding cerebral edema. An irregular hypodense lesion involving the right frontal lobe most likely represents the site of prior surgery. Comparison with any preoperative studies would be of help. An irregular hypodense lesion of right cerebellar hemisphere is unchanged since the prior study and may represents an unusual subacute versus chronic infarct. Again comparison with any older studies would be of help. Otherwise post-contrast CT or MRI is recommended for further evaluation. NOTE: These findings were conveyed to Dr. Peters at 8.39pm EST on 11/29/2017
[2017-11-29] MEDS ORDERED: CORDARONE 900 MG in D5W 482 ML IV SCH (21:00)
--- NOTE | 2017-11-29 21:16 | Cat Scan Report ---
FINAL REPORT PROCEDURE: CT ANGIO CHEST TECHNIQUE: Computerized axial tomographic angiography of the chest and pulmonary arteries was performed after the IV injection of iodinated nonionic contrast. The image data was postprocessed using maximum intensity projection (MIP) and 2-dimensional multiplanar reformatted (MPR) techniques. The examination is specifically tailored to the evaluation of the pulmonary arteries per clinical request. HISTORY: Short of breath 786.09, chest pain 786.50, Shortness of breath COMPARISON: 11/10/2017 FINDINGS: Bilateral pulmonary arteries and their branches demonstrate normal opacification without filling defects. Aorta demonstrates normal caliber without evidence of dissection. Visualized thyroid demonstrates normal size and density. Enlarged lymph nodes involving right hilum and mediastinum are again identified measuring up to 1.7 centimeters in short axis. Multiple bilateral pulmonary nodules are again identified with mild interval increase in the size. A large right lower lobe mass measuring about 9 x 8 centimeters is again identified without significant interval change. Previously noted pleural-based left apical lung mass is no longer visualized. There is interval increase multiple pleural based hypodense lesions most likely representing multiple loculations of pleural effusion. Visualized upper abdominal structures are within normal limits. Multiple irregular lytic lesions are noted involving thoracic spine and right ribs.. IMPRESSION: There is interval resolution of left upper lobe pleural based mass lesion. Large right lower lobe mass lesion is stable in size. Multiple small bilateral pulmonary nodules consistent with metastatic disease demonstrate mild interval increase in size. Multiple pleural based hypodense lesions are consistent with loculated pleural effusion. Multiple bony lesions are consistent with bony metastasis. Right hilar and mediastinal lymphadenopathy No evidence of pulmonary embolism
[2017-11-29 22:17] VITALS: BP 124/84
== END 2017-11-29 23:44 | disposition short-term general hospital (02) ==
LOC: ED 18:03
DX: I47.1 Supraventricular tachycardia (principal); I61.9 Nontraumatic intracerebral hemorrhage, unspecified; R07.89 Other chest pain; R79.89 Other specified abnormal findings of blood chemistry; I10 Essential (primary) hypertension
CPT/HCPCS: 36415; 70450; 71275; 80048; 80074; 80307; 81001; 82550; 83880; 84484; 85025; 85379; 85610; 85730; 93005; 93010; 96361; 96374; 96376; 99291; J0153; J7030; Q9967; J0282; J7060

== ENCOUNTER 2017-12-17 07:00 | Emergency (ER) | payer MEDICARE ==
--- NOTE | 2017-12-17 08:03 | XRay Report ---
ROUTINE CHEST, TWO VIEWS: HISTORY: Rib pain, lung cancer, pleural effusion. A moderate right pleural effusion has increased by 2 rib levels since 11/23/17. There is compression of the right lung base. The right upper lung and left lung are generally clear other than scattered tiny pulmonary nodules consistent with metastatic lesions. No pneumothorax. Heart size and pulmonary vascularity are within normal limits. Minimally displaced right lateral rib fractures appear to be healing. No new bony lesions detected on x-ray. IMPRESSION: Moderate right pleural effusion increased since 11/29/17. Bilateral pulmonary nodules consistent with metastatic disease. Healing right lateral rib fractures.
[2017-12-17 10:01] LABS: Basophils % (Auto) 0.1 % (0.0-1.8); Eosinophils % (Auto) 0.1 % (0.0-4.3); Hematocrit 27.4 % (35.5-45.6); Hemoglobin 8.4 gm/dl (11.8-15.2); Lymphocytes # (Auto) 0.6 K/mm3 (1.2-5.4); Lymphocytes % (Auto) 6.9 % (13.4-35.0); Mean Corpuscular HGB Conc 31 % (32-34); Monocytes % (Auto) 11.4 % (0.0-7.3); Platelet Count 208 K/mm3 (140-440); Red Cell Distribution Width 19.6 % (13.2-15.2)
[2017-12-17 10:04] LABS: Mean Corpuscular Hemoglobin 21 pg (28-32); Mean Corpuscular Volume 68 fl (84-94)
[2017-12-17 10:13] LABS: INR 1.1 (0.87-1.13); Partial Thromboplastin Time 27.5 Sec. (24.2-36.6)
[2017-12-17 10:16] VITALS: BP 117/75
[2017-12-17 10:22] LABS: BUN/Creatinine Ratio 14; Blood Urea Nitrogen 14 mg/dL (9-20); Calcium 9.3 mg/dL (8.4-10.2); Hemolysis Index 42
--- NOTE | 2017-12-17 10:47 | Emergency Department Report ---
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 Patient has had right-sided chest pain for quite some time related to his cancer. Pain described as intermittent tightness. Patient takes an unknown pain medication with some relief. He denies shortness of breath, cough, or fever. Patient states he is pain-free now and the pain comes and goes. Overall patient is a poor historian. He is unsure if he has a primary care doctor for his cancer doctor is located at [facility]. Scheduled for chemotherapy tomorrow. Patient has had multiple visits to the ER here in November as well [facility]. Patient presents with recent discharge paperwork from 12/14/2017 from [facility] with a chest x-ray showing acute nondisplaced fracture of the right eighth rib, small to moderate sized right pleural effusion which is increased in size compared to their previous study November 18 and a chronic loculated around the pocket of the right lower lobe. Patient does not know how long he has had the rib fractures. Patient has also had multiple CT's and x-rays performed here in November. Denies history of HIV (as documented on previous d/c summary here). Patient states he is not on any anti-coagulation medication. Severity scale (0 -10): 0 - Related Data Home Medications Medication Instructions Recorded Confirmed Last Taken Diltiazem HCl [Diltiazem ER] 120 mg PO QDAY 11/10/17 11/10/17 Unknown Mirtazapine [Remeron] 15 mg PO HS 11/10/17 11/10/17 Unknown levETIRAcetam [Keppra] 500 mg PO Q12H 11/10/17 11/10/17 Unknown Previous Rx's Medication Instructions Recorded Last Taken Type Ondansetron [Zofran Odt] 4 mg PO Q8HR PRN #14 tab.rapdis 11/23/17 Unknown Rx oxyCODONE /ACETAMINOPHEN [Percocet 1 tab PO Q6HR PRN #14 tablet 11/23/17 Unknown Rx 5/325] Allergies Allergy/AdvReac Type Severity Reaction Status Date / Time No Known Allergies Allergy Verified 11/10/17 03:59 Heart Score - HEART Score History: Slightly suspicious EKG: Normal Age: > 65 Risk factors: > 3 risk factors or hx of atherosclerotic disease Troponin: < normal limit HEART Score: 4 ED Review of Systems ROS: Stated complaint: RIB PAIN Other details as noted in HPI ED Past Medical Hx - Past Medical History Hx Hypertension: Yes Hx Congestive Heart Failure: Yes (EF 40-45%) Hx Sickle Cell Disease: No Hx HIV: No Additional medical history: SVT, Lung CA 08/2017, Pleural effusion 2017 - Surgical History Additional Surgical History: right collar bone, cancer mass resected from brain jul 2017 at [facility] - Social History Smoking Status: Never Smoker Substance Use Type: None - Medications Home Medications: Home Medications Medication Instructions Recorded Confirmed Last Taken Type Diltiazem HCl [Diltiazem ER] 120 mg PO QDAY 11/10/17 11/10/17 Unknown History Mirtazapine [Remeron] 15 mg PO HS 11/10/17 11/10/17 Unknown History levETIRAcetam [Keppra] 500 mg PO Q12H 11/10/17 11/10/17 Unknown History Ondansetron [Zofran Odt] 4 mg PO Q8HR PRN #14 tab.rapdis 11/23/17 Unknown Rx oxyCODONE /ACETAMINOPHEN [Percocet 1 tab PO Q6HR PRN #14 tablet 11/23/17 Unknown Rx 5/325] ED Physical Exam - General Limitations: No Limitations - Other Other exam information: General: No limitations, patient is alert in no acute distress Head exam: Atraumatic, normocephalic Eyes exam: Normal appearance ENT: Moist mucous membrane, normal oropharynx Neck exam: Normal inspection, full range of motion, no meningismus nontender Respiratory exam: No tachypnea or accessory muscle use. Diminished breath sounds at the right base. Clear to auscultation on the left without wheezes, rales, or crackles. Right-sided chest wall nontender Cardiovascular: Normal rate and rhythm. Abdomen: Soft, nondistended, and nontender, with normal bowel sounds, no rebound, or guarding Extremity: Full range of motion normal inspection no deformity, no calf tenderness or edema Back: Normal Inspection, full range of motion, no tenderness Neurologic: Alert, oriented x3, cranial nerves intact, no motor or sensory deficit Psychiatric: normal affect, normal mood Skin: Warm, dry, intact ED Course Vital Signs 12/17/17 12/17/17 12/17/17 07:28 10:13 10:17 Temperature 98.4 F 98.5 F Pulse Rate 91 H 91 H Respiratory 18 18 18 Rate Blood Pressure 137/65 Blood Pressure 117/75 [Right] O2 Sat by Pulse 90 92 92 Oximetry - Reevaluation(s) Reevaluation #1: 12/17/17 11:25 Patient remains being free with room air saturation of 95%. No respiratory distress or shortness of breath reported. - Consultations Consultation #1: 12/17/17 11:[address] 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 Patient will be discharged home and stressed importance of follow-up tomorrow as scheduled. NOAH score - Noah Score Age > 65: (1) Yes Aspirin use within the Past 7 Days: (0) No 3 or more CAD Risk Factors: (1) Yes 2 or more Angina events in past 24 hrs: (1) Yes Known CAD with more than 50% Stenosis: (0) No Elevated Cardiac Markers: (0) No ST Deviation Greater than 0.5mm: (0) No NOAH Score: 3 ED Medical Decision Making - Lab Data Result diagrams: 12/17/17 09:40 12/17/17 09:40 Lab Results 12/17/17 12/17/17 12/17/17 Range/Units 09:40 09:40 09:40 WBC 9.2 (4.5-11.0) K/mm3 RBC 4.00 (3.65-5.03) M/mm3 Hgb 8.4 L (11.8-15.2) gm/dl Hct 27.4 L (35.5-45.6) % MCV 68 L (84-94) fl MCH 21 L (28-32) pg MCHC 31 L (32-34) % RDW 19.6 H (13.2-15.2) % Plt Count 208 (140-440) K/mm3 Lymph % (Auto) 6.9 L (13.4-35.0) % Jasper % (Auto) 11.4 H (0.0-7.3) % Eos % (Auto) 0.1 (0.0-4.3) % Baso % (Auto) 0.1 (0.0-1.8) % Lymph # 0.6 L (1.2-5.4) K/mm3 Jasper # 1.0 H (0.0-0.8) K/mm3 Eos # 0.0 (0.0-0.4) K/mm3 Baso # 0.0 (0.0-0.1) K/mm3 Seg Neutrophils % 81.5 H (40.0-70.0) % Seg Neutrophils # 7.5 (1.8-7.7) K/mm3 PT 14.8 (12.2-14.9) Sec. INR 1.10 (0.87-1.13) APTT 27.5 (24.2-36.6) Sec. Sodium 138 (137-145) mmol/L Potassium 4.3 (3.6-5.0) mmol/L Chloride 97.5 L (98-107) mmol/L Carbon Dioxide 27 (22-30) mmol/L Anion Gap 18 mmol/L BUN 14 (9-20) mg/dL Creatinine 1.0 (0.8-1.5) mg/dL Estimated GFR > 60 ml/min BUN/Creatinine Ratio 14 % Glucose 106 H (75-100) mg/dL Calcium 9.3 (8.4-10.2) mg/dL Troponin T < 0.010 (0.00-0.029) ng/mL - EKG Data -: EKG Interpreted by Nm EKG shows normal: sinus rhythm, axis (qrs 29), QRS complexes (qrsd 93), ST-T waves (no stemi/t inv) Rate: normal (88) - EKG Data When compared to previous EKG there are: no significant change (11/24/17) - Radiology Data Radiology results: report reviewed ROUTINE CHEST, TWO VIEWS: HISTORY: Rib pain, lung cancer, pleural effusion. A moderate right pleural effusion has increased by 2 rib levels since 11/23/17. There is compression of the right lung base. The right upper lung and left lung are generally clear other than scattered tiny pulmonary nodules consistent with metastatic lesions. No pneumothorax. Heart size and pulmonary vascularity are within normal limits. Minimally displaced right lateral rib fractures appear to be healing. No new bony lesions detected on x-ray. IMPRESSION: Moderate right pleural effusion increased since 11/29/17. Bilateral pulmonary nodules consistent with metastatic disease. Healing right lateral rib fractures. - Medical Decision Making Right-sided chest pain Chronic and ongoing related to lung cancer Rib fractures identified chronicity unknown Patient denies shortness of breath or pain at this time Although my pleural effusion is worse compared to previous x-ray on record patient is relatively asymptomatic without signs of significant hypoxia. He will be sent home to follow up with his chemotherapy doctor as scheduled tomorrow and he will be evaluated possibly this x-ray report from today's visit. Anemia appears to be chronic - Differential Diagnosis chornic pain, cancer, effusion, pneumonia, pe, rib fracture Critical Care Time: No Critical care attestation.: If time is entered above; I have spent that time in minutes in the direct care of this critically ill patient, excluding procedure time. ED Disposition Clinical Impression: Pleural effusion, right, Chronic chest pain, Chronic anemia Rib fracture Qualifiers: Encounter type: subsequent encounter Fracture type: closed Laterality: right Disposition: DC-01 TO HOME OR SELFCARE Is pt being admited?: No Does the pt Need Aspirin: No Condition: Stable Instructions: Lung Cancer (ED), Rib Fracture (ED), Pleural Effusion (ED), Anemia (ED) Additional Instructions: Continue current pain medications is prescribed. It is very important that you follow up tomorrow as scheduled with your cancer doctor and present a copy of your x-ray report for further management. If you developed worsening shortness of breath return to the ER for further evaluation Referrals: your, cancer doctor [Other] - 12/18/17 Time of Disposition: 11:32
== END 2017-12-17 11:47 | disposition home or self-care (01) ==
LOC: ED 07:00
DX: J90 Pleural effusion, not elsewhere classified (principal); M84.48XG Pathological fracture, other site, subsequent encounter for fracture with delayed healing; G89.29 Other chronic pain; R07.89 Other chest pain; D64.9 Anemia, unspecified; I10 Essential (primary) hypertension; I50.9 Heart failure, unspecified; I47.1 Supraventricular tachycardia
CPT/HCPCS: 36415; 71046; 80048; 84484; 85025; 85610; 85730; 93005; 93010